=== PATIENT | female | born 1965 | race Caucasian/White ===

== ENCOUNTER 2020-12-08 08:12 | Day surgery (SDC) | payer BC ==
[2020-12-03 13:59] VITALS: BMI 38.9
[~2020-12-08 08:12] MED LIST: LACTATED RINGERS 1,000 ML IV SCH; LIDOCAINE 1% (10MG/ML) FOR IV START INTRADERMA PRN
--- NOTE | 2020-12-08 08:19 | P.GSHP ---
History of Present Illness H&P Date: 12/08/20 CHIEF COMPLAINT: GERD and colon screen HISTORY OF PRESENT ILLNESS: The patient is a 55-year-old female who presents with gastroesophageal reflux disease and need for colon screen. Upper and lower endoscopy were offered for further evaluation and management. PAST MEDICAL HISTORY: Please see list. PAST SURGICAL HISTORY: Please see list. MEDICATIONS: Please see list. ALLERGIES: Please see list. SOCIAL HISTORY: No illicit drug use FAMILY HISTORY: No reports of Crohn disease or ulcerative colitis. REVIEW OF ORGAN SYSTEMS: CONSTITUTIONAL: No reports of fevers or chills. GI: Denies any blood in stools or constipation. PHYSICAL EXAM: VITAL SIGNS: Stable GENERAL: Well-developed pleasant in no acute distress. HEENT: No scleral icterus. Extraocular movements grossly intact. Moist buccal mucosa. NECK: Supple without lymphadenopathy. CHEST: Unlabored respirations. Equal bilateral excursions. CARDIOVASCULAR: Regular rate and rhythm. Distal 2+ pulses. ABDOMEN: Soft, nondistended. MUSCULOSKELETAL: No clubbing, cyanosis, or edema. ASSESSMENT: 1. Gastroesophageal reflux disease 2. Colon screen. PLAN: 1. Recommend proceeding with an upper and lower endoscopy Past Medical History Past Medical History: GERD/Reflux, Pneumonia Additional Past Medical History / Comment(s): RECTAL BLEEDING History of Any Multi-Drug Resistant Organisms: None Reported Additional Past Surgical History / Comment(s): EGD, D&C , Past Anesthesia/Blood Transfusion Reactions: Previous Problems w/ Anesthesia Additional Past Anesthesia/Blood Transfusion Reaction / Comment(s): "TAKES LONGER WAKING UP" Smoking Status: Former smoker - Past Family History Mother Family Medical History: No Reported History Medications and Allergies Home Medications Medication Instructions Recorded Confirmed Type Ascorbic Acid/Collagen Hydr 1 each PO DAILY 12/03/20 12/03/20 History [Collagen Plus Vit C Capsule] Pantoprazole Sodium [Protonix] 40 mg PO DAILY 12/03/20 12/03/20 History Allergies Allergy/AdvReac Type Severity Reaction Status Date / Time No Known Allergies Allergy Verified 12/03/20 13:23
[2020-12-08 08:43] VITALS: RESP 16; TEMP 97.8
[2020-12-08] MEDS ORDERED: PROPOFOL 10 MG/ML 20 ML VIAL IV ONE (09:15)
[2020-12-08] MEDS ORDERED: LIDOCAINE 1% INJ 10MG/ML (20 ML MDV) ONE (09:15)
--- NOTE | 2020-12-08 09:32 | P.PCN ---
Date of Procedure: 12/08/20 Description of Procedure: PREOPERATIVE DIAGNOSIS: Gastroesophageal reflux disease. POSTOPERATIVE DIAGNOSIS: Gastric ulcer secured with bleeding Gastritis. Gastroesophageal reflux disease with erosive esophagitis Diaphragmatic hiatal hernia OPERATION: Esophagogastroduodenoscopy with biopsies along antrum. SURGEON: Sarah Neal MD ANESTHESIA: MAC. INDICATIONS: The patient is a 55-year-old female who presents with a history of reflux disease. Benefits and risks of the procedure were described. Informed consent was obtained. DESCRIPTION: The patient was brought into the endoscopy suite and laid in the left lateral decubitus position. An Olympus gastroscope was passed along the posterior leia pharynx down to the distal esophagus where the squamocolumnar junction was encountered at 34 cm from the incisors. The stomach was entered and no bile reflux was found. Additional findings are listed below. Biopsies with cold forceps were obtained of the antrum. The first through third portion of the duodenum was examined and unremarkable. Retroflexion of the scope confirmed Hill grade 2 lower esophageal valve. The squamocolumnar junction demonstrated LA grade B erosive esophagitis. The stomach was desufflated. The patient tolerated the procedure well. FINDINGS: Squamocolumnar junction 34 cm from the incisors. Diaphragmatic hiatus at 37 cm. Hiatal hernia, 3 cm Hill grade 2 lower esophageal valve. LA grade B erosive esophagitis. No active duodenitis. Acute gastric ulcer, less than 5 mm of with mild bleeding along antrum Biopsies obtained along antrum Gastritis with mild bleeding RECOMMENDATIONS: Omeprazole 40 mg twice daily Carafate 1 g twice a day Upper endoscopy as needed.
--- NOTE | 2020-12-08 09:56 | P.PCN ---
Date of Procedure: 12/08/20 Description of Procedure: PREOPERATIVE DIAGNOSIS: Rectal bleeding Family history colon polyps, mother POSTOPERATIVE DIAGNOSIS: Hepatic flexure polyp Descending colon polyp Grade 3 internal/external hemorrhoids without bleeding Family history colon polyps, mother OPERATION: Colonoscopy to the ileocecal valve and cecum Colonoscopy with cold forceps biopsy SURGEON: Sarah Neal MD. ANESTHESIA: MAC. INDICATIONS: The patient is an 55-year-old female who presents family history of colon polyps and rectal bleeding. Benefits and risks were described and informed consent was obtained. DESCRIPTION OF PROCEDURE: The patient had undergone Sutab prep. The patient had been brought into the operating room and laid in the left lateral decubitus position. After adequate intravenous sedation, the rectum was examined with 2% lidocaine jelly. External hemorrhoids were encountered. The rectal tone was within normal limits. No lesions were palpated in the rectal vault. An Olympus colonoscope was advanced until the cecum, ileocecal valve were clearly viewed. The prep was excellent with moderate gas bubbles. No sigmoid diverticulosis was encountered. Colonic polyps were found and removed. No evidence of focal colitis was found. Retroflexion of the scope demonstrated grade 3 internal hemorrhoids without active bleeding or inflammation. The colon was desufflated. The patient had tolerated the procedure well. Withdrawal time was over 6 minutes. FINDINGS: Aronchick preparation quality scale 1 (1-5) Internal hemorrhoids, grade 3 External hemorrhoids, grade 3. No arteriovenous malformations. No sigmoid diverticulosis Removal of 2 polyps: - Cold forceps biopsy at hepatic flexure, 4 mm polyp. - Cold forceps biopsy at 40 cm from the anal verge, 5 mm polyp, descending colon polyp No focal colitis. RECOMMENDATIONS: Repeat colonoscopy in 3 years, 2023 Plan - Discharge Summary Discharge Rx Participant: No New Discharge Prescriptions: New Pantoprazole [Protonix] 40 mg PO BID #28 tablet. Sucralfate [Carafate] 1 gm PO BID #60 tab Discontinued Pantoprazole Sodium [Protonix] 40 mg PO DAILY Ascorbic Acid/Collagen Hydr [Collagen Plus Vit C Capsule] 1 each PO DAILY Discharge Medication List Pantoprazole [Protonix] 40 mg PO BID #28 tablet. 12/08/20 [Rx] Sucralfate [Carafate] 1 gm PO BID #60 tab 12/08/20 [Rx] Follow up Appointment(s)/Referral(s): Sarah Neal MD [STAFF PHYSICIAN] - 12/14/20 Patient Instructions/Handouts: Peptic Ulcer (DC), Gastritis (DC), Diet for Stomach Ulcers and Gastritis (GEN) Discharge Disposition: HOME SELF-CARE
[2020-12-08 10:02] VITALS: BP 111/74; PULSE 72
== END 2020-12-08 11:05 | disposition home or self-care (01) ==
LOC: ORWHC2ENDO 08:12
PROVIDERS: ATTEND Surgery Plastic and Reconstructive Surgery
DX: D12.4 Benign neoplasm of descending colon (principal); K64.2 Third degree hemorrhoids; K63.5 Polyp of colon; K29.50 Unspecified chronic gastritis without bleeding; K21.00 Gastro-esophageal reflux disease with esophagitis, without bleeding; Z83.71 Family history of colonic polyps; Z87.01 Personal history of pneumonia (recurrent); Z87.891 Personal history of nicotine dependence; Z79.899 Other long term (current) drug therapy; K44.9 Diaphragmatic hernia without obstruction or gangrene
CPT/HCPCS: 45380; 43239; J2001; J2704; 88305; 88342

== ENCOUNTER → 2021-11-01 | Outpatient (CLI) | payer BC ==
--- NOTE | 2021-11-03 09:21 | MM ---
Reason for exam: screening (asymptomatic). History: Patient is postmenopausal and history of other cancer. Family history of breast cancer in paternal aunt at age 50. Physical Findings: A clinical breast exam by your physician is recommended on an annual basis and results should be correlated with mammographic findings. MG 3D Screening Mammo W/Cad Bilateral CC and MLO view(s) were taken. No prior studies available for comparison. There are scattered fibroglandular densities. Finding: There are typically benign fine calcifications in both breasts. ASSESSMENT: Benign, BI-RAD 2 RECOMMENDATION: Routine screening mammogram of both breasts in 1 year.
== END | disposition home or self-care (01) ==
LOC: RADMAMWWP 07:39
PROVIDERS: ATTEND Family Medicine
DX: Z12.31 Encounter for screening mammogram for malignant neoplasm of breast (principal); Z78.0 Asymptomatic menopausal state; Z80.3 Family history of malignant neoplasm of breast
CPT/HCPCS: 77063; 77067

== ENCOUNTER → 2022-07-19 | Outpatient (CLI) | payer BC ==
--- NOTE | 2022-07-19 09:34 | CTL ---
EXAMINATION TYPE: CT Low Dose Lung DATE OF EXAM ORDERED: 07/19/2022 HISTORY: Long-term tobacco use. Lung cancer screening CT DLP: 107.[address] CTDI: 3.40 mGy Automated exposure control for dose reduction was used. SCREENING VISIT: Baseline COMPARISON: None TECHNIQUE: Low dose computed tomography scan was performed through the chest at 1 mm thick sections a nd reconstructed images in multiple planes at 1 mm and [address] DIAGNOSTIC QUALITY: Satisfactory FINDINGS: LUNG NODULES: Present, detailed below: Scattered small calcified nodules or benign granulomas are identified bilaterally. Occasional microno dule is seen for reference 2 mm subpleural left lower lobe nodule axial image 141. No greater than 5 mm noncalcified pulmonary nodules are identified. LUNGS: COPD: Severity: Mild Fibrosis: Severity: None Lymph nodes: No greater than 1 cm Other findings: None RIGHT PLEURAL SPACE: Effusion: None Calcification: None Thickening: None Pneumothorax: None LEFT PLEURAL SPACE: Effusion: None Calcification: None Thickening: None Pneumothorax: None HEART: Heart Size: Normal Coronary Calcification: None Pericardial Effusion: None OTHER FINDINGS: Upper abdomen: None Bony thorax: None Supraclavicular region: None Other: None IMPRESSION: Evidence of old granulomatous disease. No significant greater than 5 mm noncalcified pulm onary nodules. CT LUNG RAD AND CT CHEST RECOMMENDATION: Lung-Rad 2 Benign Appearance or Behavior: Continue annual sc reening with LDCT in 12 months. S Modifier (other clinically significant findings): None
== END | disposition home or self-care (01) ==
LOC: RADCTMAIN 08:26
PROVIDERS: ATTEND Family Medicine
DX: Z12.2 Encounter for screening for malignant neoplasm of respiratory organs (principal); Z87.891 Personal history of nicotine dependence
CPT/HCPCS: 71271

== ENCOUNTER 2023-08-18 02:26 | Observation (INO) | payer BC ==
[2023-08-18] MEDS: PANTOPRAZOLE 40 MG/10 ML VIAL IVP STA (02:59)
[2023-08-18] MEDS: ONDANSETRON 4 MG/2 ML VIAL IVP STA (03:02)
--- NOTE | 2023-08-18 03:03 | ED ---
General Adult HPI - General Chief complaint: Abdominal Pain Stated complaint: ABD PAIN Time Seen by Provider: 08/18/23 02:40 Source: patient, RN notes reviewed, old records reviewed Mode of arrival: wheelchair Limitations: no limitations - History of Present Illness Initial comments: Patient is a 58-year-old female who presents emergency Department complaining of sudden onset epigastric abdominal pain. States it started around midnight. Does have a history of acid reflux as well as bleeding gastric ulcers. Endorses bloody nonbilious emesis. Denies any change in bowel movements. Denies any abdominal surgeries in the past. Denies chest pain or shortness breath. Denies cardiac history. States his pain seems slightly different. She does occ asionally drink wine. Has no other acute complaints at this time. Presents for further evaluation at this time. - Related Data Previous Rx's Medication Instructions Recorded Pantoprazole [Protonix] 40 mg PO BID #28 tablet. 12/08/20 Sucralfate [Carafate] 1 gm PO BID #60 tab 12/08/20 Allergies Allergy/AdvReac Type Severity Reaction Status Date / Time No Known Allergies Allergy Verified 12/08/20 08:39 Review of Systems ROS Statement: Those systems with pertinent positive or pertinent negative responses have been documented in the HPI. Review of Systems: CONST: Denies fever EYES: Denies blurry vision ENT: Denies nasal congestion C/V: Denies Chest pain RESP: Denies shortness of breath GI: Endorses abdominal pain : Denies dysuria SKIN: Denies rash. MSK: Denies joint pain. NEURO: Denies headache ROS Other: All systems not noted in ROS Statement are negative. Past Medical History Past Medical History: GERD/Reflux, Pneumonia Additional Past Medical History / Comment(s): RECTAL BLEEDING History of Any Multi-Drug Resistant Organisms: None Reported Additional Past Surgical History / Comment(s): EGD, D&C , Past Anesthesia/Blood Transfusion Reactions: Previous Problems w/ Anesthesia Additional Past Anesthesia/Blood Transfusion Reaction / Comment(s): "TAKES LONGER WAKING UP" Past Psychological History: No Psychological Hx Reported Smoking Status: Former smoker - Past Family History Mother Family Medical History: No Reported History General Exam - General Exam Comments Initial Comments: General: Appears in mild to moderate distress secondary to abdominal discomfort. HEAD: Normal with no signs of head trauma. EYES: PERRLA, EOMI, conjunctiva normal, no discharge. ENT: Hearing grossly intact, normal oropharynx. RESPIRATORY: Clear breath sounds bilaterally. No wheezes, rales, or rhonchi. C/V: Regular rate and rhythm. S1 and S2 auscultated, no edema, peripheral pulses 2+ and intact throughout ABD: Abdomen is soft, nondistended. Tender to palpation epigastric and right upper quadrant region. No guarding. No rebound tenderness. No peritoneal signs. EXT: Normal range of motion, no obvious deformity SKIN: No rashes or lesions observed on exposed skin. NEURO: Alert and oriented x 4. Limitations: no limitations Course Vital Signs 08/18/23 08/18/23 08/18/23 02:30 03:40 04:35 Temperature 97.7 F Pulse Rate 77 89 96 Respiratory 18 18 18 Rate Blood Pressure 146/80 143/83 138/80 O2 Sat by Pulse 100 99 96 Oximetry Medical Decision Making - Medical Decision Making Was pt. sent in by a medical professional or institution (, PA, MARKET SALES MANAGER, urgent care, hospital, or long-term...) When possible be specific @ -No Did you speak to anyone other than the patient for history (EMS, parent, family, police, friend...)? What history was obtained from this source @ -No Did you review nursing and triage notes (agree or disagree)? Why? @ -I reviewed and agree with nursing and triage notes Were old charts reviewed (outside hosp., previous admission, EMS record, old EKG, old radiological studies, urgent care reports/EKG's, long-term records)? Report findings @ -Old charts reviewed Differential Diagnosis (chest pain, altered mental status, abdominal pain women, abdominal pain men, vaginal bleeding, weakness, fever, dyspnea, syncope, headache, dizziness, GI bleed, back pain, seizure, CVA, palpatations, mental health, musculoskeletal)? @ -Differential Abdominal Pain Women: Appendicitis, Cholecystitis, diverticulosis, ischemic bowel, pancreatitis, hepatitis, UTI, gastroenteritis, AAA, incarcerated hernia, bowel obstruction, constipation, inflammatory bowel, hepatitis, peptic ulcer disease, splenic infarction, perforated viscus, vulvitis, ovarian torsion, PID, kidney stone, placenta abruption, this is not meant to be an all-inclusive list EKG interpreted by me (3pts min.). @ -As above X-rays interpreted by me (1pt min.). @ -Chest x-ray reveals no obvious acute cardio pulmonary process. CT interpreted by me (1pt min.). @ -CT abdomen and pelvis reveals no obvious acute intra-abdominal process. There are gallstones but no complications from his gallstones. No evidence of cholecystitis. U/S interpreted by me (1pt. min.). @ -None done What testing was considered but not performed or refused? (CT, X-rays, U/S, labs)? Why? @ -None What meds were considered but not given or refused? Why? @ -None Did you discuss the management of the patient with other professionals (professionals i.e. DrWhitney, PA, MARKET SALES MANAGER, lab, RT, psych nurse, social worker clinical, bee tender, teacher, aboriginal home school liaison officer, hospice case manager)? Give summary @ - I spoke with the admitting team, JAMES Day of [facility] who admits for Dr. Mathur who accepted the admission. Was smoking cessation discussed for >3mins.? @ -No Was critical care preformed (if so, how long)? @ -No Were there social determinants of health that impacted care today? How? (Homelessness, low income, unemployed, alcoholism, drug addiction, transportation, low edu. Level, literacy, decrease access to med. care, longterm, rehab)? @ -No Was there de-escalation of care discussed even if they declined (Discuss DNR or withdrawal of care, Hospice)? DNR status @ -No What co-morbidities impacted this encounter? (DM, HTN, Smoking, COPD, CAD, Canc er, CVA, ARF, Chemo, Hep., AIDS, mental health diagnosis, sleep apnea, morbid obesity)? @ -None Was patient admitted / discharged? Hospital course, mention meds given and route, prescriptions, significant lab abnormalities, going to OR and other pertinent info. @ -Patient is a 58-year-old female who presents emergency Department complaining of abdominal pain. We will obtain an abdominal workup as well as atypical ACS workup. She was in agreement this plan. Vital signs within acceptable limits. Patient will be symptomatically treated with IV fluids, Zofran, morphine, Protonix. EKG shows no signs of acute ischemia.Patient's laboratory studies showed no obvious acute process. All within acceptable limits. Patient's laboratory studies within acceptable limits. Imaging remarkable for gallstones but no evidence of cholecystitis or choledocholithiasis. On reevaluation, patient's required multiple doses of IV opiate medications and antiemetics. I did offer admission intractable abdominal pain when she accepted. Gallbladder ultrasound ordered. It is the middle the night and will be completed at 7 AM. Patient was in agreement with the plan for admission. I spoke with the admitting team, JAMES Day of [facility] who admits for Dr. Mathur who accepted the admission. Surgery consulted. Undiagnosed new problem with uncertain prognosis? @ -No Drug Therapy requiring intensive monitoring for toxicity (Heparin, Nitro, Insulin, Cardizem)? @ -No Were any procedures done? @ -No Diagnosis/symptom? @ -Intractable abdominal pain of unknown etiology Acute, or Chronic, or Acute on Chronic? @ -Acute Uncomplicated (without systemic symptoms) or Complicated (systemic symptoms)? @ -Complicated Side effects of treatment? @ -none Exacerbation, Progression, or Severe Exacerbation] @ -no Poses a threat to life or bodily function? @ -Potentially, yes - Lab Data Result diagrams: 08/18/23 02:55 08/18/23 02:55 Lab Results 08/18/23 08/18/23 08/18/23 Range/Units 02:55 02:55 02:55 WBC 7.5 (3.8-10.6) k/uL RBC 4.46 (3.80-5.40) m/uL Hgb 14.1 (11.4-16.0) gm/dL Hct 41.6 (34.0-46.0) % MCV 93.3 (80.0-100.0) fL MCH 31.7 (25.0-35.0) pg MCHC 34.0 (31.0-37.0) g/dL RDW 12.9 (11.5-15.5) % Plt Count 214 (150-450) k/uL MPV 9.3 Neutrophils % 75 % Lymphocytes % 18 % Monocytes % 3 % Eosinophils % 2 % Basophils % 1 % Neutrophils # 5.6 (1.3-7.7) k/uL Lymphocytes # 1.4 (1.0-4.8) k/uL Monocytes # 0.2 (0-1.0) k/uL Eosinophils # 0.1 (0-0.7) k/uL Basophils # 0.1 (0-0.2) k/uL PT 9.8 L (10.0-12.5) sec INR 0.9 (<1.2) APTT 25.3 (22.0-30.0) sec Sodium 142 (137-145) mmol/L Potassium 3.9 (3.5-5.1) mmol/L Chloride 105 (98-107) mmol/L Carbon Dioxide 25 (22-30) mmol/L Anion Gap 12 mmol/L BUN 12 (7-17) mg/dL Creatinine 0.65 (0.52-1.04) mg/dL Est GFR (CKD-EPI)AfAm >90 (>60 ml/min/1.73 sqM) Est GFR (CKD-EPI)NonAf >90 (>60 ml/min/1.73 sqM) Glucose 130 H (74-99) mg/dL Plasma Lactic Acid Dillon (0.7-2.0) mmol/L Calcium 9.3 (8.4-10.2) mg/dL Total Bilirubin 0.3 (0.2-1.3) mg/dL AST 28 (14-36) U/L ALT 24 (4-34) U/L Alkaline Phosphatase 81 (38-126) U/L Troponin I (0.000-0.034) ng/mL Total Protein 7.9 (6.3-8.2) g/dL Albumin 4.8 (3.5-5.0) g/dL Amylase 73 (30-110) U/L Lipase 218 (23-300) U/L 08/18/23 08/18/23 Range/Units 02:55 02:55 WBC (3.8-10.6) k/uL RBC (3.80-5.40) m/uL Hgb (11.4-16.0) gm/dL Hct (34.0-46.0) % MCV (80.0-100.0) fL MCH (25.0-35.0) pg MCHC (31.0-37.0) g/dL RDW (11.5-15.5) % Plt Count (150-450) k/uL MPV Neutrophils % % Lymphocytes % % Monocytes % % Eosinophils % % Basophils % % Neutrophils # (1.3-7.7) k/uL Lymphocytes # (1.0-4.8) k/uL Monocytes # (0-1.0) k/uL Eosinophils # (0-0.7) k/uL Basophils # (0-0.2) k/uL PT (10.0-12.5) sec INR (<1.2) APTT (22.0-30.0) sec Sodium (137-145) mmol/L Potassium (3.5-5.1) mmol/L Chloride (98-107) mmol/L Carbon Dioxide (22-30) mmol/L Anion Gap mmol/L BUN (7-17) mg/dL Creatinine (0.52-1.04) mg/dL Est GFR (CKD-EPI)AfAm (>60 ml/min/1.73 sqM) Est GFR (CKD-EPI)NonAf (>60 ml/min/1.73 sqM) Glucose (74-99) mg/dL Plasma Lactic Acid Dillon 1.5 (0.7-2.0) mmol/L Calcium (8.4-10.2) mg/dL Total Bilirubin (0.2-1.3) mg/dL AST (14-36) U/L ALT (4-34) U/L Alkaline Phosphatase (38-126) U/L Troponin I <0.012 (0.000-0.034) ng/mL Total Protein (6.3-8.2) g/dL Albumin (3.5-5.0) g/dL Amylase (30-110) U/L Lipase (23-300) U/L - EKG Data -: EKG Interpreted by Me EKG Comments: 12-lead Electrocardiogram Interpretation Note EKG was reviewed and interpreted by myself. 12-lead ECG performed at 0252 is interpreted by me as revealing normal sinus rhythm at a rate of 90 beats per minute. [place] is normal. OR interval is 145 ms, QRS duration is 96 ms, QTc is 401 ms.. There were no ST or T wave abnormalities to suggest myocardial ischemia or injury. R wave progression across the precordium was satisfactory. By my interpretation this EKG is non-diagnostic for acute ischemia. Disposition Clinical Impression: Intractable abdominal pain Disposition: ADMITTED IP TO THIS [facility] Condition: Stable Referrals: Joy Cornelius DO [Primary Care Provider] - 1-2 days Time of Disposition: 05:42
[2023-08-18] MEDS: MORPHINE SULFATE 4 MG/ML SYRINGE IVP STA (03:04)
[2023-08-18] MEDS: SODIUM CHLORIDE 0.9% 1,000 ML IV STA (03:05)
[2023-08-18 03:14] LABS: Basophils # (A) 0.1 k/uL (0-0.2); Basophils % (A) 1 %; Eosinophils # (A) 0.1 k/uL (0-0.7); Eosinophils % (A) 2 %; HCT 41.6 % (34.0-46.0); HGB 14.1 gm/dL (11.4-16.0); Lymphocytes # (A) 1.4 k/uL (1.0-4.8); Lymphocytes % (A) 18 %; MCH 31.7 pg (25.0-35.0); MCV 93.3 fL (80.0-100.0); Mean Platelet Volume 9.3; Monocytes # (A) 0.2 k/uL (0-1.0); Monocytes % (A) 3 %; Neutrophils # (A) 5.6 k/uL (1.3-7.7); Neutrophils % (A) 75 %; Platelet Count 214 k/uL (150-450); RBC 4.46 m/uL (3.80-5.40); RDW 12.9 % (11.5-15.5); WBC 7.5 k/uL (3.8-10.6)
[2023-08-18 03:25] LABS: INR 0.9 (<1.2); Partial Thromboplastin Time 25.3 sec (22.0-30.0); Prothrombin Time 9.8 sec (10.0-12.5)
[2023-08-18 03:38] LABS: ALT 24 U/L (4-34); AST 28 U/L (14-36); African American GFR (CKD) >90 (>60 ml/min/1.73 sqM); Albumin 4.8 g/dL (3.5-5.0); Alkaline Phosphatase 81 U/L (38-126); Amylase 73 U/L (30-110); Anion Gap 12 mmol/L; Blood Urea Nitrogen 12 mg/dL (7-17); Calcium 9.3 mg/dL (8.4-10.2); Carbon Dioxide 25 mmol/L (22-30); Chloride 105 mmol/L (98-107); Glucose 130 mg/dL (74-99); Lipase 218 U/L (23-300); Non-African American GFR(CKD) >90 (>60 ml/min/1.73 sqM); Potassium 3.9 mmol/L (3.5-5.1); Sodium 142 mmol/L (137-145); Total Bilirubin 0.3 mg/dL (0.2-1.3); Total Protein 7.9 g/dL (6.3-8.2)
[2023-08-18] MEDS: HYDROmorphone 0.5 MG/0.5 ML SYRINGE IVP STA ×2 (03:46→04:45)
[2023-08-18] MEDS: METOCLOPRAMIDE 5 MG/ML 2 ML VIAL IVP STA (04:44)
--- NOTE | 2023-08-18 05:36 | XR ---
EXAMINATION TYPE: XR chest 1V portable DATE OF EXAM: 08/18/2023 COMPARISON: NONE HISTORY: Epigastric abdominal pain TECHNIQUE: Single AP portable frontal semiupright view of the chest is obtained. FINDINGS: There is no focal air space opacity, pleural effusion, or pneumothorax seen. The cardiac silhouette size is within normal limits. The osseous structures are intact. IMPRESSION: No acute process.
--- NOTE | 2023-08-18 05:41 | CT ---
EXAMINATION TYPE: CT abdomen pelvis w con DATE OF EXAM: 08/18/2023 HISTORY: Pt. c/o epigastric discomfort since 0000 tonight. Denies N/V. Describes pain as burning and stabbing. Pt. states she has GERD but this pain is different. H/O EGD CT DLP: 1450.5mGycm Automated Exposure Control for Dose Reduction was Utilized. CONTRAST: CT scan of the abdomen and pelvis is performed with IV Contrast, patient injected with 100 mL of Isov ue 300. COMPARISON: None FINDINGS: LUNG BASES: Dependent opacity favors atelectasis. LIVER/GB: Liver is diffusely low dense suggesting fatty infiltrated hepatocellular disease. Subcentim eter low-density lesion right hepatic lobe axial image 20 is too small to further characterize. Inter nal density suspicious for small stones and/or gallbladder sludge is seen. Gallbladder shows no surro unding fluid or fat stranding. No biliary dilatation. PANCREAS: No significant abnormality is seen. SPLEEN: No significant abnormality is seen. ADRENALS: Slight nodular thickening of both adrenal glands, nonspecific finding, favor benign lipid r ich hyperplasia. KIDNEYS: No significant abnormality is seen. BOWEL: Appendix within normal limits for base of cecum. No abnormal small or large bowel dilatation. UTERUS/ADNEXA: Heterogeneous anteverted prominent uterus. Suspect underlying fibroids. LYMPH NODES: No greater than 1cm abdominal or pelvic lymph nodes are appreciated. OSSEOUS STRUCTURES: Moderate disc space narrowing L3-L4 level with slight grade 1 anterolisthesis L3 on L4. OTHER: Small moderate-sized fat-containing umbilical hernia sagittal image 64. Mild calcified plaque of the aorta extends into branch vessels. IMPRESSION: No Bowel obstruction is seen. No significant acute finding is seen to account for patient 's clinical symptoms. Prominent fibroid uterus is present. Gallstones are seen without CT evidence fo r acute cholecystitis.
[2023-08-18] MEDS ORDERED: NALOXONE 0.4 MG/ML 1 ML VIAL IV PRN (05:45)
[2023-08-18] MEDS ORDERED: ONDANSETRON 4 MG/2 ML VIAL IVP PRN ×2 (05:45→07:15)
[2023-08-18] MEDS: SODIUM CHLORIDE 0.9% 1,000 ML IV SCH (05:59)
--- NOTE | 2023-08-18 09:06 | US ---
EXAMINATION TYPE: US gallbladder DATE OF EXAM: 08/18/2023 COMPARISON: NONE CLINICAL INDICATION: Female, 58 years old with history of gallstones, abd pain; ABD pain n/v since mi dnight TECHNIQUE: Multiple sonographic images of the right upper quadrant are obtained. FINDINGS: EXAM MEASUREMENTS: Liver Length: 15.4 cm Gallbladder Wall: 0.2 cm CBD: 0.5 cm Right Kidney: 9.9x4.3x4.1 cm PHOTOLETTERING MACHINE OPERATOR NOTES: Pancreas: Tail obscured by overlying bowel gas Liver: upper limits, limited evaluation due to bowel and tight rib spaces Gallbladder: at least 3 echogenic areas measuring up to 1.6cm near the GB neck with sludge Evidence for sonographic Self's sign: No CBD: wnl Right Kidney: No hydronephrosis or masses seen, inferior pole obscured by gas exam limited by bowel and body habitus IMPRESSION: 1. Cholelithiasis. No acute cholecystitis.
[2023-08-18] MEDS: HYDROmorphone 0.5 MG/0.5 ML SYRINGE IVP PRN (09:09)
[2023-08-18] MEDS: PANTOPRAZOLE 40 MG/10 ML VIAL IVP SCH (09:11)
[2023-08-18] MEDS ORDERED: CALCIUM CARBONATE 500 MG CHEWABLE PO PRN (10:33)
[2023-08-18] MEDS ORDERED: MELATONIN 3 MG TABLET PO PRN (10:33)
[2023-08-18] MEDS ORDERED: MAG HYDROX/AL HYDROX/SIMETH 30 ML CUP PO PRN (10:33)
[2023-08-18] MEDS ORDERED: PROCHLORPERAZINE 5 MG TAB PO PRN (10:33)
--- NOTE | 2023-08-18 11:15 | P.GSCN ---
History of Present Illness Consult date: 08/18/23 Reason for Consult: RUQ pain; rule out cholecystitis History of present illness: Patient is a 58-year-old female with no past medical history who presents with an acute onset of right upper quadrant pain. Patient states that her right upper quadrant pain that started around midnight the day prior to presentation. No prior episodes such as this. Admits to mild nausea but no emesis. No fevers or chills. No shortness of breath or chest pain. Admits to flatus and bowel movement the day prior to presentation. No diarrhea. No melena or hematochezia. She states that she is tolerating by mouth intake prior to the onset of her pain. No sick contacts or travel. Upon presentation to [facility] a [facility] abdomen pelvis was obtained which showed evidence of cholelithiasis without definitive evidence of acute cholecystitis. Right upper quadrant ultrasound was also obtained confirming evidence of cholelithiasis without collateral thickening or pericholecystic fluid to suggest cholecystitis Review of Systems negative except for as stated above Past Medical History Past Medical History: GERD/Reflux, Pneumonia Additional Past Medical History / Comment(s): RECTAL BLEEDING History of Any Multi-Drug Resistant Organisms: None Reported Additional Past Surgical History / Comment(s): EGD, D&C , Past Anesthesia/Blood Transfusion Reactions: Previous Problems w/ Anesthesia Additional Past Anesthesia/Blood Transfusion Reaction / Comm: "TAKES LONGER WAKING UP" Past Psychological History: No Psychological Hx Reported Smoking Status: Former smoker - Past Family History Mother Family Medical History: No Reported History Medications and Allergies Home Medications Medication Instructions Recorded Confirmed Type Pantoprazole [Protonix] 40 mg PO BID #28 tablet. 12/08/20 Rx Sucralfate [Carafate] 1 gm PO BID #60 tab 12/08/20 Rx Allergies Allergy/AdvReac Type Severity Reaction Status Date / Time No Known Allergies Allergy Verified 12/08/20 08:39 Surgical - Exam Vital Signs Temp Pulse Resp BP Pulse Ox 97.7 F 77 18 146/80 100 08/18/23 02:30 08/18/23 02:30 08/18/23 02:30 08/18/23 02:30 08/18/23 02:30 Gen: AxO, NAD Pulm: non-labored respirations Abd: soft, mildly-tender in RUQ, minimally distended, no guarding/rebound/rigidity. Self sign negative Extrem: no edema seen Results - Labs 08/18/23 02:55 08/18/23 02:55 Abnormal Lab Results - Last 24 Hours (Table) 08/18/23 08/18/23 Range/Units 02:55 02:55 PT 9.8 L (10.0-12.5) sec Glucose 130 H (74-99) mg/dL Diabetes panel 08/18/23 Range/Units 02:55 Sodium 142 (137-145) mmol/L Potassium 3.9 (3.5-5.1) mmol/L Chloride 105 (98-107) mmol/L Carbon Dioxide 25 (22-30) mmol/L BUN 12 (7-17) mg/dL Creatinine 0.65 (0.52-1.04) mg/dL Glucose 130 H (74-99) mg/dL Calcium 9.3 (8.4-10.2) mg/dL AST 28 (14-36) U/L ALT 24 (4-34) U/L Alkaline Phosphatase 81 (38-126) U/L Total Protein 7.9 (6.3-8.2) g/dL Albumin 4.8 (3.5-5.0) g/dL Calcium panel 08/18/23 Range/Units 02:55 Calcium 9.3 (8.4-10.2) mg/dL Albumin 4.8 (3.5-5.0) g/dL Pituitary panel 08/18/23 Range/Units 02:55 Sodium 142 (137-145) mmol/L Potassium 3.9 (3.5-5.1) mmol/L Chloride 105 (98-107) mmol/L Carbon Dioxide 25 (22-30) mmol/L BUN 12 (7-17) mg/dL Creatinine 0.65 (0.52-1.04) mg/dL Glucose 130 H (74-99) mg/dL Calcium 9.3 (8.4-10.2) mg/dL Adrenal panel 08/18/23 Range/Units 02:55 Sodium 142 (137-145) mmol/L Potassium 3.9 (3.5-5.1) mmol/L Chloride 105 (98-107) mmol/L Carbon Dioxide 25 (22-30) mmol/L BUN 12 (7-17) mg/dL Creatinine 0.65 (0.52-1.04) mg/dL Glucose 130 H (74-99) mg/dL Calcium 9.3 (8.4-10.2) mg/dL Total Bilirubin 0.3 (0.2-1.3) mg/dL AST 28 (14-36) U/L ALT 24 (4-34) U/L Alkaline Phosphatase 81 (38-126) U/L Total Protein 7.9 (6.3-8.2) g/dL Albumin 4.8 (3.5-5.0) g/dL Assessment and Plan Assessment: Patient is a 58 year old female who presents with acute onset of RUQ pain and CT and US evidence of cholelithiasis without definitive evidence of acute cholecystitis Plan: -CLD Diet as tolerated -IVF hydration -PRN pain and nausea control -No acute surgical intervention given lack of evidence of acute cholecystitits; will plan for outpatient follow-up for discussion on laparoscopic cholecystectomy for biliary colic If symptomatic cholelithiasis pain and PO intolerance persists will consider laparoscopic cholecystectomy as inpatient Jordy Donaldson MD General Surgery
[2023-08-18 13:37] LABS: Appearance,Urine Clear (Clear); Bilirubin,Urine Negative (Negative); Blood,Urine Negative (Negative); Color,Urine Colorless; Glucose,Urine (UA) Negative (Negative); Ketones,Urine Negative (Negative); Leukocyte Esterase,Urine Negative (Negative); Nitrite,Urine Negative (Negative); Protein,Urine Negative (Negative); Urobilinogen,Urine <2.0 mg/dL (<2.0)
--- NOTE | 2023-08-18 16:04 | P.HPIM ---
History of Present Illness H&P Date: 08/18/23 Chief Complaint: Abdominal pain * 58-year-old lady with past medical history significant for gastroesophageal reflux disease, presents to the emergency department with complains of abdominal pain patient states she had sudden onset of epigastric abdominal pain that started tonight prior to admission. She does have history of aseptic reflux and previously had history of bleeding gastric ulcers. Patient denied associated chest pain, fever, shortness of breath * Workup initiated in ER included CBC which were WBC 7.5 bilirubin 14.1 platelet 214 INR of 0.9 * Serum chemistry obtained sodium 142 potassium 3.9 chloride 105 BUNs 12 creatinine 0.65 glucose 1:30 lactate of 1.5 lipase of 218 * CT abdomen pelvis obtained in ER showed shows no bowel obstruction, no significant acute finding noted prominent fibroid uterus noted gallstones noted * Patient had ultrasound right upper quadrant and which showed cholelithiasis without cholecystitis * Patient had troponins done which was negative * EKG obtained in ER showed sinus rhythm no significant ST segment changes * Chest x-ray was obtained that was negative * Patient was given fluid resuscitation and admitted to medical floor REVIEW OF SYSTEMS: Abdominal pain, nausea CONSTITUTIONAL: No fever, no malaise, no fatigue. HEENT: No recent visual problems or hearing problems. Denied any sore throat. CARDIOVASCULAR: No chest pain, orthopnea, PND, no palpitations, no syncope. PULMONARY: No shortness of breath, no cough, no hemoptysis. GASTROINTESTINAL: No diarrhea, no nausea, no vomiting, no abdominal pain. NEUROLOGICAL: No headaches, no weakness, no numbness. HEMATOLOGICAL: Denies any bleeding or petechiae. GENITOURINARY: Denies any burning micturition, frequency, or urgency. MUSCULOSKELETAL/RHEUMATOLOGICAL: Denies any joint pain, swelling, or any muscle pain. ENDOCRINE: Denies any polyuria or polydipsia. PHYSICAL EXAMINATION: GENERAL: The patient is alert and oriented x3, not in any acute distress. Well developed, well nourished. HEENT: Pupils are round and equally reacting to light. EOMI. . CARDIOVASCULAR: S1 and S2 present. No murmurs, rubs, or gallops. PULMONARY: Chest is clear to auscultation, no wheezing or crackles. ABDOMEN: Soft, mild epigastric tenderness MUSCULOSKELETAL: No joint swelling or deformity. EXTREMITIES: No cyanosis, clubbing, or pedal edema. NEUROLOGICAL: Gross neurological examination did not reveal any focal deficits. SKIN: No rashes. Past Medical History Past Medical History: GERD/Reflux, Pneumonia Additional Past Medical History / Comment(s): RECTAL BLEEDING History of Any Multi-Drug Resistant Organisms: None Reported Additional Past Surgical History / Comment(s): EGD, D&C , Past Anesthesia/Blood Transfusion Reactions: Previous Problems w/ Anesthesia Additional Past Anesthesia/Blood Transfusion Reaction / Comment(s): "TAKES LONGER WAKING UP" Past Psychological History: No Psychological Hx Reported Smoking Status: Former smoker - Past Family History Mother Family Medical History: No Reported History Medications and Allergies Home Medications Medication Instructions Recorded Confirmed Type Escitalopram [Lexapro] 10 mg PO DAILY 08/18/23 08/18/23 History Pantoprazole [Protonix] 40 mg PO DAILY 08/18/23 08/18/23 History Triamcinolone 0.1% Cream [Kenalog 1 applicatio TOPICAL DIRECTED 08/18/23 08/18/23 History 0.1% Cream] Allergies Allergy/AdvReac Type Severity Reaction Status Date / Time No Known Allergies Allergy Verified 08/18/23 12:07 Physical Exam Vitals: Vital Signs Temp Pulse Resp BP Pulse Ox 08/18/23 09:26 98 08/18/23 09:07 98.2 F 94 18 147/85 94 L 08/18/23 06:40 84 18 124/81 93 L 08/18/23 04:35 96 18 138/80 96 08/18/23 03:40 89 18 143/83 99 08/18/23 02:30 97.7 F 77 18 146/80 100 Intake and Output 08/17/23 08/18/23 08/18/23 22:59 06:59 14:59 Other: Weight 93.894 kg Results CBC & Chem 7: 08/18/23 02:55 08/18/23 02:55 Labs: Abnormal Lab Results - Last 24 Hours (Table) 08/18/23 08/18/23 Range/Units 02:55 02:55 PT 9.8 L (10.0-12.5) sec Glucose 130 H (74-99) mg/dL Thrombosis Risk Factor Assmnt - DVT/VTE Prophylaxis DVT/VTE Prophylaxis: Mechanical Prophylaxis ordered Assessment and Plan Assessment: Assessment and plan * Cholelithiasis with intractable abdominal pain * History of gastroesophageal reflux disease * History of gastric ulcers * In regards to intractable abdominal pain patient had CT abdomen pelvis completed, serum chemistry showed normal liver profile lipase within normal limits. Continue patient on fluid resuscitation continue pain control and antiemetics serial abdominal exam * In regards to history of gastro-physical reflux disease continue IV Protonix * Gen. surgery consulted due to evidence of cholelithiasis, continue patient on clear diet * CODE STATUS is full code Time with Patient: Greater than 30
[2023-08-19] MEDS: ACETAMINOPHEN TAB 325 MG TAB PO PRN (08:10)
[2023-08-19 10:03] LABS: Basophils # (A) 0.02 X 10*3/uL (0.00-0.10); Basophils % (A) 0.4 %; Eosinophils # (A) 0.14 X 10*3/uL (0.04-0.35); Eosinophils % (A) 2.7 %; HCT 38.8 % (37.2-46.3); HGB 12.9 g/dL (12.0-15.0); Lymphocytes # (A) 1.41 X 10*3/uL (0.90-5.00); Lymphocytes % (A) 26.8 %; MCH 31.6 pg (27.0-32.0); MCHC 33.2 g/dL (32.0-37.0); MCV 95.1 FL (80.0-97.0); Mean Platelet Volume 11.3 FL (9.5-12.2); Monocytes # (A) 0.31 X 10*3/uL (0.20-1.00); Monocytes % (A) 5.9 %; NRBC Per 100 WBC 0 X 10*3/uL (0.00-0.01); Neutrophils # (A) 3.36 X 10*3/uL (1.80-7.70); Neutrophils % (A) 63.8 %; Platelet Count 174 X 10*3/uL (140-440); RBC 4.08 X 10*6/uL (4.10-5.20); RDW 12.8 % (11.5-14.5); WBC 5.26 X 10*3/uL (4.50-10.00)
[2023-08-19 10:10] LABS: ALT 136 U/L (8-44); AST 109 U/L (13-35); Albumin 3.7 g/dL (3.8-4.9); Albumin/Globulin Ratio 1.85 Ratio (1.60-3.17); Alkaline Phosphatase 103 U/L (41-126); BUN/Creat Ratio 7.71 Ratio (12.00-20.00); Blood Urea Nitrogen 5.4 mg/dL (9.0-27.0); Calcium 8.9 mg/dL (8.7-10.3); Carbon Dioxide 27.7 mmol/L (21.6-31.8); Chloride 109 mmol/L (96-109); Glucose 98 mg/dL (70-110); Potassium 4.2 mmol/L (3.5-5.5); Sodium 144 mmol/L (135-145); Total Bilirubin 0.7 mg/dL (0.3-1.2); Total Protein 5.7 g/dL (6.2-8.2)
--- NOTE | 2023-08-19 14:14 | P.PN ---
Subjective Progress Note Date: 08/19/23 CHIEF COMPLAINT: Right upper quadrant abdominal pain HISTORY OF PRESENT ILLNESS: The patient is a 58-year-old female admitted for right upper quadrant abdominal pain. Patient reports abdominal pain with diet. She is seeking cholecystectomy while inpatient. ROS: No reports of nausea and vomiting. No bowel movements. No fevers or chills. No new chest pain. No productive sputum. Morbid obesity due to excess calories, BMI 36.7 PHYSICAL EXAM: VITAL SIGNS: Reviewed CONSTITUTIONAL: Well developed and in no acute distress. EYES: Conjuctivae without sclera icterus. Extraocular movements grossly intact. HEAD, EARS, NOSE, THROAT: Moist buccal mucosa. Head is atraumatic, normocephalic. Hears conversational speech. No nasal drainage. RESPIRATORY: Non-labored respirations and equal bilateral excursions. CARDIOVASCULAR: Palpable 2+ radial pulses. ABDOMEN: Peritonitis. Right upper quadrant discomfort. MUSCULOSKELETAL: No gross deformity of the lower extremities noted. No clubbing. No cyanosis. SKIN: Good skin turgor. Well perfused. NEUROLOGIC: Cranial nerves II through XII grossly intact. No focal or lateralizing signs. PSYCH: Appropriate affect. Alert and oriented to person, place and time. CLINICAL LABS: Reviewed. LFTs are elevated. STUDIES: CT of the abdomen pelvis independently reviewed demonstrates umbilical hernia. No hiatal hernia. Gallbladder mildly distended. Pelvic mass along the right lower quadrant identified. Presence of fibroid uterus. This is my independent interpretation. REPORTS: CT report demonstrates gallstones. ASSESSMENT: 1. Right upper quadrant pain due to symptomatic gallstones 2. Morbid obesity due to excess calories, BMI 36.7 PLAN: 1. As patient has symptomatic right upper quadrant abdominal pain, inpatient cholecystectomy described 2. She is elevated risk due to comorbidities include morbid obesity. Objective - Vital Signs Vital signs: Vital Signs Temp 98.1 F 08/19/23 07:00 Pulse 80 08/19/23 07:00 Resp 16 08/19/23 07:00 BP 112/75 08/19/23 07:00 Pulse Ox 95 08/19/23 07:00 FiO2 Intake & Output 08/18/23 08/19/23 08/19/23 18:59 06:59 18:59 Intake Total 180 Balance 180 Intake: Oral 180 Other: # Voids 1 1 - Labs CBC & Chem 7: 08/20/23 07:18 08/20/23 07:18 Labs: Abnormal Lab Results - Last 24 Hours (Table) 08/19/23 08/19/23 Range/Units 05:42 05:42 RBC 4.08 L (4.10-5.20) X 10*6/uL BUN 5.4 L (9.0-27.0) mg/dL BUN/Creatinine Ratio 7.71 L (12.00-20.00) Ratio AST 109 H (13-35) U/L ALT 136 H (8-44) U/L Total Protein 5.7 L (6.2-8.2) g/dL Albumin 3.7 L (3.8-4.9) g/dL
--- NOTE | 2023-08-19 14:46 | P.PN ---
Subjective Progress Note Date: 08/19/23 * 58-year-old lady with past medical history significant for gastroesophageal reflux disease, presents to the emergency department with complains of abdominal pain patient states she had sudden onset of epigastric abdominal pain that started tonight prior to admission. She does have history of aseptic reflux and previously had history of bleeding gastric ulcers. Patient denied associated chest pain, fever, shortness of breath * Workup initiated in ER included CBC which were WBC 7.5 bilirubin 14.1 platelet 214 INR of 0.9 * Serum chemistry obtained sodium 142 potassium 3.9 chloride 105 BUNs 12 creatinine 0.65 glucose 1:30 lactate of 1.5 lipase of 218 * CT abdomen pelvis obtained in ER showed shows no bowel obstruction, no significant acute finding noted prominent fibroid uterus noted gallstones note d * Patient had ultrasound right upper quadrant and which showed cholelithiasis without cholecystitis * Patient had troponins done which was negative * EKG obtained in ER showed sinus rhythm no significant ST segment changes * Chest x-ray was obtained that was negative * Patient was given fluid resuscitation and admitted to medical floor * 08/19/2023: Patient seen and evaluated bedside, patient was intolerant to food had postprandial nausea and abdominal discomfort. Liver profile ordered to be elevated general surgery team following HIDA scan was ordered. Continue with antiemetic continue with IV Protonix and fluid resuscitation REVIEW OF SYSTEMS: Abdominal pain, nausea CONSTITUTIONAL: No fever, no malaise, no fatigue. HEENT: No recent visual problems or hearing problems. Denied any sore throat. CARDIOVASCULAR: No chest pain, orthopnea, PND, no palpitations, no syncope. PULMONARY: No shortness of breath, no cough, no hemoptysis. GASTROINTESTINAL: No diarrhea, no nausea, no vomiting, no abdominal pain. NEUROLOGICAL: No headaches, no weakness, no numbness. HEMATOLOGICAL: Denies any bleeding or petechiae. GENITOURINARY: Denies any burning micturition, frequency, or urgency. MUSCULOSKELETAL/RHEUMATOLOGICAL: Denies any joint pain, swelling, or any muscle pain. ENDOCRINE: Denies any polyuria or polydipsia. PHYSICAL EXAMINATION: GENERAL: The patient is alert and oriented x3, not in any acute distress. Well developed, well nourished. HEENT: Pupils are round and equally reacting to light. EOMI. . CARDIOVASCULAR: S1 and S2 present. No murmurs, rubs, or gallops. PULMONARY: Chest is clear to auscultation, no wheezing or crackles. ABDOMEN: Soft, mild epigastric tenderness, Self's sign negative MUSCULOSKELETAL: No joint swelling or deformity. EXTREMITIES: No cyanosis, clubbing, or pedal edema. NEUROLOGICAL: Gross neurological examination did not reveal any focal deficits. SKIN: No rashes. Objective - Vital Signs Vital signs: Vital Signs Temp 98.1 F 08/19/23 07:00 Pulse 80 08/19/23 07:00 Resp 16 08/19/23 07:00 BP 112/75 08/19/23 07:00 Pulse Ox 95 08/19/23 07:00 FiO2 Intake & Output 08/18/23 08/19/23 08/19/23 18:59 06:59 18:59 Intake Total 180 Balance 180 Intake: Oral 180 Other: # Voids 1 1 - Labs CBC & Chem 7: 08/19/23 05:42 08/19/23 05:42 Labs: Abnormal Lab Results - Last 24 Hours (Table) 08/19/23 08/19/23 Range/Units 05:42 05:42 RBC 4.08 L (4.10-5.20) X 10*6/uL BUN 5.4 L (9.0-27.0) mg/dL BUN/Creatinine Ratio 7.71 L (12.00-20.00) Ratio AST 109 H (13-35) U/L ALT 136 H (8-44) U/L Total Protein 5.7 L (6.2-8.2) g/dL Albumin 3.7 L (3.8-4.9) g/dL Assessment and Plan Assessment: Assessment and plan * Cholelithiasis with intractable abdominal pain, postprandial nausea * History of gastroesophageal reflux disease * History of gastric ulcers * In regards to intractable abdominal pain patient had CT abdomen pelvis completed, liver profile elevated HIDA scan ordered Continue patient on fluid resuscitation continue pain control and antiemetics serial abdominal exam * In regards to history of gastro-physical reflux disease continue IV Protonix * Gen. surgery consulted due to evidence of cholelithiasis, we will defer timing of cholecystectomy to general surgery * CODE STATUS is full code
[2023-08-20 08:33] LABS: ALT 110 U/L (4-34); African American GFR (CKD) >90 (>60 ml/min/1.73 sqM); Albumin 4.1 g/dL (3.5-5.0); Albumin/Globulin Ratio 1.5; Anion Gap 8 mmol/L; Blood Urea Nitrogen 5 mg/dL (7-17); Calcium 9.2 mg/dL (8.4-10.2); Carbon Dioxide 26 mmol/L (22-30); Chloride 110 mmol/L (98-107); Globulin 2.8 g/dL; Glucose 96 mg/dL (74-99); Non-African American GFR(CKD) >90 (>60 ml/min/1.73 sqM); Sodium 144 mmol/L (137-145); Total Bilirubin 1.1 mg/dL (0.2-1.3); Total Protein 6.9 g/dL (6.3-8.2)
[2023-08-20 08:34] LABS: AST 69 U/L (14-36); Alkaline Phosphatase 85 U/L (38-126); Potassium 4.6 mmol/L (3.5-5.1)
[2023-08-20 08:37] LABS: HGB 14.4 gm/dL (11.4-16.0); MCH 33.7 pg (25.0-35.0); MCHC 35.2 g/dL (31.0-37.0); MCV 95.8 fL (80.0-100.0); Mean Platelet Volume 10.6; Platelet Count 197 k/uL (150-450); RBC 4.28 m/uL (3.80-5.40); RDW 12.6 % (11.5-15.5); WBC 5.6 k/uL (3.8-10.6)
--- NOTE | 2023-08-20 10:20 | NM ---
Nuclear medicine hepatobiliary scan. HISTORY: Pain. DOSAGE: The patient received 8 0z Ensure plus and 4.5 mCi of Technetium 99m Choletec. FINDINGS: There is normal hepatic extraction. The gallbladder is seen by 30 minutes. There is bilia ry to bowel clearance by 20 minutes. Ejection fraction is 11%. IMPRESSION: 1. Abnormal ejection fraction of 11% correlate for biliary dyskinesia.
[2023-08-20] MEDS: IV FLUID CONTINUATION 1,000 ML IV ONE (11:28)
[2023-08-20] MEDS ORDERED: ONDANSETRON 4 MG/2 ML VIAL ONE (11:36)
[2023-08-20] MEDS ORDERED: KETOROLAC 15 MG/ML 1 ML VIAL ONE (11:36)
[2023-08-20] MEDS ORDERED: LIDOCAINE 1% INJ 10MG/ML (20 ML MDV) ONE (11:36)
[2023-08-20] MEDS: ACETAMINOPHEN TAB 500 MG TAB ONE (11:36)
[2023-08-20] MEDS ORDERED: HYDROmorphone (PF) 1 MG/ML ONE (11:36)
[2023-08-20] MEDS ORDERED: NEOSTIGMINE 1 MG/ML 10 ML VIAL ONE (11:36)
[2023-08-20] MEDS ORDERED: ROCURONIUM 10 MG/ML (5 ML VIAL) IV ONE (11:36)
[2023-08-20] MEDS ORDERED: fentaNYL (PF) 50 MCG/ML 2 ML AMP ONE (11:36)
[2023-08-20] MEDS ORDERED: PROPOFOL 10 MG/ML 20 ML VIAL IV ONE (11:36)
[2023-08-20] MEDS ORDERED: SUCCINYLCHOLINE CHLORIDE 200 MG/10 ML VIAL IV ONE (11:36)
[2023-08-20] MEDS ORDERED: GLYCOPYRROLATE 0.2 MG/ML 2 ML VIAL ONE (11:36)
[2023-08-20] MEDS ORDERED: DEXAMETHASONE SOD PHOSPHATE 4 MG/ML 1 ML VIAL ONE (11:36)
[2023-08-20] MEDS ORDERED: HEPARIN SODIUM,PORCINE 5,000 UNIT/ML 1 ML VIAL ONE (11:36)
[2023-08-20] MEDS ORDERED: MIDAZOLAM 2 MG/2 ML VIAL ONE (11:36)
[2023-08-20] MEDS: LIDOCAINE 1%-EPI 1:100,000 50 ML VIAL SQ ONE (12:06)
--- NOTE | 2023-08-20 12:12 | P.PN ---
Progress Note - Text Progress Note Date: 08/20/23 Patient not seen, of the floor for HIDA scan. Patient not seen off the floor, in OR.
--- NOTE | 2023-08-20 12:22 | P.OP ---
Date of Procedure: 08/20/23 Preoperative Diagnosis: Cholecystitis Postoperative Diagnosis: Cholecystitis Procedure(s) Performed: Laparoscopic cholecystectomy Anesthesia: INDIRA Surgeon: Kishore Lau Estimated Blood Loss (ml): 5 Pathology: other (Gallbladder) Condition: stable Disposition: PACU Description of Procedure: The patient was placed on the operating table. The patient received a general endotracheal tube anesthesia. The patients abdomen was prepped and draped in the usual sterile fashion. Through an infraumbilical stab incision, the fascia of the anterior abdominal wall was grasped with a pair of Kochers and then the Veress needle was placed in the peritoneal cavity. Position of the Veress needle was confirmed with positive drop test. The abdomen was then insufflated. After adequate insufflation, the 10 mm trocar was placed in the peritoneal cavity. Following this the laparoscope was placed in the peritoneal cavity. The patient was placed in the head-up, right side up position and then a 5 mm trocar was placed in the right lateral and right subcostal position under direct visualization. A 8 mm trocar was placed in the epigastric position. The gallbladder was grasped in the fundus and infundibulum. Traction on the gallbladder was placed in the lateral and the cephalad positions. The triangle of Calot was visualized.. The cystic duct was bluntly dissected until the union of the cystic duct and common bile duct was seen. A critical view of safety was achieved. The cystic duct was then divided and sealed with the Harmonic scissors. A PDS Endoloop was then placed throughout the cystic duct stump. The cystic artery divided and sealed with the Harmonic scissors. The gallbladder was then removed from the liver bed using Harmonic scissors. The gallbladder was then extracted through the epigastric port site. Operative field was checked for any bleeding spots and Harmonic scissors was used to coagulate the liver bed. The abdomen was irrigated. The trocars were removed. The skin was closed using interrupted 3-0 Vicryl suture. Dermabond dressing were applied. The patient tolerated the procedure well.
[2023-08-20] MEDS: HYDROmorphone 1 MG/ML 1 ML SYRINGE IVP PRN (13:45)
[2023-08-20 22:31] VITALS: RESP 16
[2023-08-21 09:54] VITALS: BP 106/64; PULSE 68; TEMP 98.3
[2023-08-21] MEDS: ENOXAPARIN 40 MG/0.4 ML SYRINGE SQ SCH (09:57)
--- NOTE | 2023-08-21 13:24 | P.PN ---
Subjective Progress Note Date: 08/21/23 CHIEF COMPLAINT: Abdominal pain HISTORY OF PRESENT ILLNESS: Postop day #1 status post laparoscopic cholec ystectomy. Patient reports her pain is controlled. She is tolerating diet. She has had flatus. She's been up and ambulating. Afebrile. PHYSICAL EXAM: VITAL SIGNS: Reviewed. GENERAL: Well-developed in no acute distress. ABDOMEN: Soft. Nondistended. Mild tenderness at incision sites. Umbilical incision site with minimal bleeding that has improved NEUROLOGIC: Alert and oriented. Cranial nerves II through XII grossly intact. ASSESSMENT: 1. Cholecystitis status post laparoscopic cholecystectomy PLAN: -Patient is stable for discharge from surgical standpoint -Patient follow-up with Dr. Lau in 1 week Physician Client Development Consultant note has been reviewed by physician. Signing provider agrees with the documented findings, assessment, and plan of care. Objective - Vital Signs Vital signs: Vital Signs Temp 98.3 F 08/21/23 07:00 Pulse 68 08/21/23 07:00 Resp 16 08/21/23 07:00 BP 106/64 08/21/23 07:00 Pulse Ox 99 08/21/23 02:00 FiO2 Intake & Output 08/20/23 08/21/23 08/21/23 18:59 06:59 18:59 Intake Total 1150 Output Total 5 Balance 1145 Intake: IV 650 Oral 500 Output: Urine 0 Estimated Blood Loss 5 Other: Voiding Method Toilet Toilet # Voids 1 3 - Labs CBC & Chem 7: 08/20/23 07:18 08/20/23 07:18
[2023-08-21] MEDS: oxyCODONE-APAP 5-325MG 1 EACH TAB PO PRN (13:30)
--- NOTE | 2023-08-21 14:50 | P.DS ---
Providers Date of admission: 08/18/23 05:47 Expected date of discharge: 08/21/23 Attending physician: Yomi Mathur MD Consults: 08/18/23 05:45 Consult Physician Routine Consulting Provider: Sarah Neal Consult Reason/Comments: intractable abd pain, gallstones without evidence of cholecystitis Do you want consulting provider notified?: Yes 08/20/23 09:05 Consult Physician Routine Consulting Provider: Kishore Lau Consult Reason/Comments: gallstones Do you want consulting provider notified?: Already Contacted Primary care physician: Joy Cornelius Hospital Course: Final Diagnoses: Intractable abdominal pain secondary to Cholelithiasis with abnormal EF of 11% , biliary dyskinesia , CT reported internal density suspicious for small stones and or gallbladder sludge seen,status post laparoscopic cholecystectomy Gastroesophageal reflux disease History of gastric ulcers 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 Radiology studies completed. Ultrasound gallbladder reported cholelithiasis, no acute cholecystitis .Hepatobiliary scan reported abnormal ejection fraction of 11%, correlate for biliary dyskinesia. Evaluated by general surgery and underwent laparoscopic cholecystectomy. Tolerated procedure well. Pain controlled on current regimen, tolerating diet, positive flatus. Ambulating tolerating exertion well. Cleared by general surgery for discharge. Patient will be discharged home today in a stable condition with guarded progn osis. The impression and plan of care has been dictated as directed. : I performed a history and examination of this patient, discussed the same with the dictator. I agree with the dictator's note ,documented as a scribe. Any additional findings or plans will be noted. Patient Condition at Discharge: Stable Plan - Discharge Summary Discharge Rx Participant: Yes New Discharge Prescriptions: New HYDROcodone/APAP 5-325MG [[place] 5-325] 1 tab PO Q6HR PRN 3 Days #12 tab PRN Reason: Pain Ibuprofen [Motrin] 600 mg PO Q8HR PRN #30 tab PRN Reason: Pain Continue Escitalopram [Lexapro] 10 mg PO DAILY Triamcinolone 0.1% Cream [Kenalog 0.1% Cream] 1 applicatio TOPICAL DIRECTED Pantoprazole [Protonix] 40 mg PO DAILY Discharge Medication List Escitalopram [Lexapro] 10 mg PO DAILY 08/18/23 [History] Pantoprazole [Protonix] 40 mg PO DAILY 08/18/23 [History] Triamcinolone 0.1% Cream [Kenalog 0.1% Cream] 1 applicatio TOPICAL DIRECTED 08/18/23 [History] HYDROcodone/APAP 5-325MG [[place] 5-325] 1 tab PO Q6HR PRN 3 Days #12 tab 08/21/23 [Rx] Ibuprofen [Motrin] 600 mg PO Q8HR PRN #30 tab 08/21/23 [Rx] Follow up Appointment(s)/Referral(s): Yomi Mathur MD [STAFF PHYSICIAN] - 1 Week Kishroe Lau MD [STAFF PHYSICIAN] - 08/30/23 3:00 pm Activity/Diet/Wound Care/Special Instructions: No driving while taking [place] No lifting over 10 pounds You may shower. No soaking or tub baths for 2 weeks Very light activity until you are reevaluated at your follow up appointment with your surgeon
== END 2023-08-21 15:28 | disposition home or self-care (01) ==
LOC: EC 02:26 → 6NMEDSUR 05:47
PROVIDERS: ADMIT Family Medicine; ATTEND Family Medicine
DX: K80.12 Calculus of gallbladder with acute and chronic cholecystitis without obstruction (principal); K21.9 Gastro-esophageal reflux disease without esophagitis; K76.0 Fatty (change of) liver, not elsewhere classified; Z87.11 Personal history of peptic ulcer disease; Z87.891 Personal history of nicotine dependence; Z79.899 Other long term (current) drug therapy
CPT/HCPCS: 47562; 96376 ×3; 96361; 96365; 96366 ×2; 96367; 96372; 96375; 99285; 36415; 93005; 88304; 80053 ×3; 82150; 83605; 83690; 84484; 85025 ×2; 85027; 85610; 85730; 81003; 71045; 76705; 74177; 78227; G0378 ×4; A9537; J2250; J0330; J2270; J1644; J1100; J2710; J2765; J0690; J2405 ×2; J2805; J2001; J1650; J3010; J1170 ×3; J1885; J2704; C9113 ×4; Q9967

== ENCOUNTER → 2024-10-16 | Day surgery (SDC) | payer BC ==
[~2024-10-16] MED LIST changes: +PROPOFOL 10 MG/ML 20 ML VIAL IV ONE
[2024-10-16] MEDS: IV FLUID CONTINUATION 1,000 ML IV ONE (08:42)
[2024-10-16 08:55] VITALS: TEMP 97
--- NOTE | 2024-10-16 09:20 | P.GSHP ---
History of Present Illness H&P Date: 10/16/24 Chief Complaint: Screening colonoscopy This is a 59-year-old female presents today for screening colonoscopy. Patient denies any significant GI complaints. Past Medical History Past Medical History: Cancer, GERD/Reflux, Pneumonia Additional Past Medical History / Comment(s): hx. melanoma-had Moh's procedure, past hx. bleeding ulcer's History of Any Multi-Drug Resistant Organisms: None Reported Past Surgical History: Cholecystectomy Additional Past Surgical History / Comment(s): EGD, D&C , colonoscopy, Moh's surg. Past Anesthesia/Blood Transfusion Reactions: No Reported Reaction Additional Past Anesthesia/Blood Transfusion Reaction / Comment(s): takes longer to wake up @times w/anesthesia Smoking Status: Former smoker - Past Family History Mother Family Medical History: No Reported History Medications and Allergies Home Medications Medication Instructions Recorded Confirmed Type Escitalopram [Lexapro] 20 mg PO DAILY 08/18/23 10/16/24 History Pantoprazole [Protonix] 40 mg PO DAILY 08/18/23 10/16/24 History Allergies Allergy/AdvReac Type Severity Reaction Status Date / Time adhesive tape Allergy Unknown Verified 10/16/24 08:57 Surgical - Exam Vital Signs Temp Pulse Resp BP Pulse Ox 97.0 F L 90 16 114/80 95 10/16/24 08:54 10/16/24 08:54 10/16/24 08:54 10/16/24 08:54 10/16/24 08:54 - General well developed, well nourished, no distress - Eyes PERRL - ENT normal pinna - Neck no masses - Respiratory normal expansion - Cardiovascular Rhythm: regular - Abdomen Abdomen: soft, non tender Assessment and Plan Assessment: Will perform screening colonoscopy.
--- NOTE | 2024-10-16 09:32 | P.OP ---
Date of Procedure: 10/16/24 Preoperative Diagnosis: Screening colonoscopy Postoperative Diagnosis: Diverticulosis External hemorrhoids Procedure(s) Performed: colonoscopy Anesthesia: MAC Surgeon: Kishore Lau Pathology: none sent Condition: stable Disposition: PACU Description of Procedure: The patient was placed on the endoscopy table in the lateral position. She received IV sedation. Digital rectal exams performed. This revealed external hemorrhoids. Flex colonoscope was then placed patient anus passed throughout the entire colon. The ileocecal valve was visualized. The cecum, ascending and transverse colon appeared normal. In the descending sigmoid colon there was mild diverticulosis. The scope was brought back rectum this appeared normal. Scope withdrawn the patient.
[2024-10-16 09:49] VITALS: BP 108/77; PULSE 72; RESP 16
== END ==
LOC: ORWHC2ENDO 08:25
PROVIDERS: ATTEND Surgery
DX: Z12.11 Encounter for screening for malignant neoplasm of colon (principal); K57.30 Diverticulosis of large intestine without perforation or abscess without bleeding; K64.4 Residual hemorrhoidal skin tags; K21.9 Gastro-esophageal reflux disease without esophagitis; F41.9 Anxiety disorder, unspecified; L23.1 Allergic contact dermatitis due to adhesives; Z87.11 Personal history of peptic ulcer disease; Z85.820 Personal history of malignant melanoma of skin; Z90.49 Acquired absence of other specified parts of digestive tract; Z87.891 Personal history of nicotine dependence; Z79.899 Other long term (current) drug therapy
CPT/HCPCS: 45378; J2704

== ENCOUNTER → 2024-11-17 | Outpatient (CLI) | payer BC ==
--- NOTE | 2024-11-17 12:11 | MM ---
Reason for Exam: Screening (asymptomatic). Last mammogram was performed 1 year(s) and 11 month(s) ago. Patient History: Menarche at age 15. First Full-Term at age 29. Postmenopausal. Paternal aunt had breast cancer, age 50. Risk Values: Mary 5 year model risk: 1.4%. NCI Lifetime model risk: 8.7%. Prior Study Comparison: 11/01/2021 Bilateral Screening Mammogram, [facility]. 12/07/2022 Bilateral MG 3D screening mammo w/cad, [facility]. Tissue Density: There are scattered areas of fibroglandular density. Findings: Analyzed By CAD. There may be new 5 mm obscured mass in the central right breast . Overall Assessment: Incomplete: need additional imaging evaluation, BI-RAD 0 Management: Diagnostic Mammogram of the right breast. Diagnostic Breast Ultrasound of the right breast. Additional spot 3-D and 3-D true lateral views along with targeted ultrasound right breast. Patient should continue monthly self-breast exams. A clinical breast exam by your physician is recommended on an annual basis. This exam should not preclude additional follow-up of suspicious palpable abnormalities. Note on Mary scores and lifetime risk: 1. A Mary score greater than 3% is considered moderate risk. If this is the case, consider specialist referral to assess eligibility for a risk reducing agent. 2. If overall lifetime risk for the development of breast cancer is 20% or higher, the patient may qualify for future screening with alternating mammogram and breast MRI. [facility], , 11/17/2024 12:08 PM. Electronically signed and approved by: Andre Valentine M.D.
== END | disposition home or self-care (01) ==
LOC: RADMAMWWP 11:15
PROVIDERS: ATTEND Family Medicine
DX: Z12.31 Encounter for screening mammogram for malignant neoplasm of breast (principal); R92.323 Mammographic fibroglandular density, bilateral breasts; Z78.0 Asymptomatic menopausal state; Z80.3 Family history of malignant neoplasm of breast
CPT/HCPCS: 77063; 77067

== ENCOUNTER → 2024-11-20 | Outpatient (CLI) | payer BC ==
--- NOTE | 2024-11-20 08:13 | MM ---
Reason for Exam: Additional evaluation requested from abnormal screening. Last screening mammogram was performed less than 1 month ago. Patient History: Menarche at age 15. First Full-Term at age 29. Postmenopausal. Paternal aunt had breast cancer, age 50. Risk Values: Mary 5 year model risk: 1.4%. NCI Lifetime model risk: 8.7%. Prior Study Comparison: 11/01/2021 Bilateral Screening Mammogram, [facility]. 12/07/2022 Bilateral MG 3D screening mammo w/cad, [facility]. 11/17/2024 Bilateral MG 3D screening mammo w/cad, [facility]. Tissue Density: Right: The breasts are heterogeneously dense, which may obscure small masses. Findings: Analyzed By CAD. There is a small 5 mm nodule seen 4 cm from the nipple upper outer quadrant. Additional density is noted at the right 12:00 position 5 cm from the nipple measuring 8 mm. Ultrasound is advised both areas. Overall Assessment: Incomplete: need additional imaging evaluation, BI-RAD 0 Management: Diagnostic Breast Ultrasound of the right breast. . Results were given to the patient verbally at the time of exam. Patient should continue monthly self-breast exams. A clinical breast exam by your physician is recommended on an annual basis. This exam should not preclude additional follow-up of suspicious palpable abnormalities. Note on Mary scores and lifetime risk: 1. A Mary score greater than 3% is considered moderate risk. If this is the case, consider specialist referral to assess eligibility for a risk reducing agent. 2. If overall lifetime risk for the development of breast cancer is 20% or higher, the patient may qualify for future screening with alternating mammogram and breast MRI. [facility], , 11/20/2024 8:09 AM. Electronically signed and approved by: Rodney Coker M.D. Radiologis
--- NOTE | 2024-11-20 08:36 | USB ---
Reason for Exam: Additional evaluation requested from abnormal screening. Patient History: Menarche at age 15. First Full-Term at age 29. Postmenopausal. Paternal aunt had breast cancer, age 50. Risk Values: Mary 5 year model risk: 1.4%. NCI Lifetime model risk: 8.7%. Technique: Method: Targeted. Prior Study Comparison: 11/01/2021 Bilateral Screening Mammogram, [facility]. 12/07/2022 Bilateral MG 3D screening mammo w/cad, [facility]. 11/17/2024 Bilateral MG 3D screening mammo w/cad, [facility]. Findings: The upper outer quadrant of the right breast, the axilla of the right breast and the retroareolar of the right breast were scanned. Ultrasound of the upper outer quadrant right breast was performed. At the right 11:00 position 4 cm from the nipple there is a simple cyst measuring 4 x 4 millimeters. No solid masses seen within the imaged field.. Overall Assessment: Benign, BI-RAD 2 Management: Screening Mammogram of both breasts in 1 year. A clinical breast exam by your physician is recommended on an annual basis and results should be correlated with mammographic findings. This exam should not preclude additional follow-up of suspicious palpable abnormalities. Results were given to the patient verbally at the time of exam. [facility], , 11/20/2024 8:33 AM. Electronically signed and approved by: Rodney Coker M.D. Radiologis
== END | disposition home or self-care (01) ==
LOC: RADMAMWWP 07:49
PROVIDERS: ATTEND Family Medicine
DX: R92.8 Other abnormal and inconclusive findings on diagnostic imaging of breast (principal); R92.331 Mammographic heterogeneous density, right breast; N60.01 Solitary cyst of right breast; Z78.0 Asymptomatic menopausal state; Z80.3 Family history of malignant neoplasm of breast
CPT/HCPCS: 77061; 77065